=== PATIENT | female | born 1990 | race Caucasian/White ===

== ENCOUNTER 2023-11-29 07:26 | Emergency (ER) | payer BC, SELFPAY ==
--- NOTE | ~2023-11-29 | XR_ITS ---
3 VIEWS LUMBAR SPINE Ordering provider: Mekhi Keenan MD History: . WORSENING MIDDLE LOW BACK PAIN X 2 DAYS. NKI . Comparison: None. FINDINGS: VERTEBRAL BODIES: No visible fracture or subluxation. DISK SPACES: Normal. Possible facet joint disease at the level of L5-S1. SOFT TISSUES: Normal. IMPRESSION: No acute osseous abnormality lumbar spine. Reviewed, dictated and finalized at location A.
[2023-11-29 07:31] VITALS: BP 123/57; PULSE 99; RESP 18; TEMP 36.6; O2SAT 100
[2023-11-29] MEDS: HYDROcodone/acetaminophen (*CRX) 5-325 MG TABLET 1 TAB PO (08:05)
[2023-11-29] MEDS: KETOROLAC 30 MG/ML VIAL (*BKC) IM (08:06)
[2023-11-29] MEDS: dexAMETHasone SOD PHOS INJ 10 MG/ML 1 ML VIAL IM (08:06)
[2023-11-29 08:23] LABS: BEDSIDEPREGUCG Negative (Negative)
[2023-11-29 08:29] LABS: Add Urine Microscopic? YES; Appearance Urine Cloudy (Clear); Bacteria Urine 1+ /hpf; Bilirubin Urine Negative (Negative); Blood Urine Negative (Negative); Color Urine Yellow (Yellow); Glucose Urine UA Negative (Negative); Ketones Urine Trace mg/dL (Negative); Leukocyte Esterase Ur Negative LEU/UL (Negative); Nitrate Urine Negative (Negative); Non Pathogenic Casts 0-2; Protein Urine Trace mg/dL (Negative); Specific Grav Ur 1.024 (1.001-1.035); Squamous Epithelial Cell Urine Occasional /hpf (Few); WBC Urine 0-5 /hpf (0-3)
--- NOTE | 2023-11-29 09:14 | ED.GENADULT ---
HPI - General Adult General Chief complaint: Back Pain/Injury Stated complaint: low back pain Time Seen by Provider: 11/29/23 07:47 History of Present Illness HPI narrative: Patient is a 33-year-old female who presents emergency department with chief complaint of low back pain. Patient reports been having pain for last 24 hours reports that she has no numbness no tingling denies bowel or bladder dysfunction. Patient denies footdrop. The patient reports pain is worse with ambulation improves with rest. Related Data Allergies Allergy/AdvReac Type Severity Reaction Status Date / Time No Known Allergies Allergy Verified 11/29/23 07:27 Review of Systems Review of Systems: A 10 system review of systems was completed on the patient and is negative except for what is stated in the HPI. Nursing and ancillary documentation was reviewed. Exam Narrative: GENERAL: Well-appearing, well-nourished, and in no acute distress. HEAD: Normocephalic, atraumatic. EYES: PERRLA and EOMI. ENT: Nares clear, no rhinorrhea or epistaxis. Mucous membranes moist. NECK: Supple. CHEST: Clear to auscultation. No respiratory distress. HEART: Regular rate and rhythm. No murmur heard. Normal peripheral pulses. ABDOMEN: Soft, nontender, nondistended, normal active bowel sounds. EXTREMITIES: Normal range of motion. No edema. SKIN: Warm, dry, no rash. NEURO: No focal deficits. Alert and oriented x3. No saddle anesthesia no footdrop PSYCH: Normal mood and affect. Course Vital Signs Vital signs: Vital Signs Temperature 36.6 C 11/29/23 07:31 Pulse Rate 99 11/29/23 07:31 Respiratory Rate 18 11/29/23 07:31 Blood Pressure 123/57 L 11/29/23 07:31 Pulse Oximetry 100 11/29/23 07:31 Oxygen Delivery Room Air 11/29/23 07:31 Temperature 36.6 C 11/29/23 07:31 Pulse Rate 99 11/29/23 07:31 Respiratory Rate 18 11/29/23 07:31 Blood Pressure 123/57 L 11/29/23 07:31 Pulse Oximetry 100 11/29/23 07:31 Oxygen Delivery Room Air 11/29/23 07:31 Medical Decision Making [facility] Narrative Medical decision making narrative: Differential diagnosis includes UTI, sciatica, low back pain Plain film x-ray showed no evidence of fracture. Urinalysis showed 3-5 red blood cells no white blood cells negative leukocyte esterase 1+ bacteria. The patient was started on muscle relaxers and anti-inflammatories given a steroid and given a prescription for Lidoderm patch. Vital Signs Vital Signs: Vital Signs Temperature 36.6 C 11/29/23 07:31 Pulse Rate 99 11/29/23 07:31 Respiratory Rate 18 11/29/23 07:31 Blood Pressure 123/57 L 11/29/23 07:31 Pulse Oximetry 100 11/29/23 07:31 Oxygen Delivery Room Air 11/29/23 07:31 Temperature 36.6 C 11/29/23 07:31 Pulse Rate 99 11/29/23 07:31 Respiratory Rate 18 11/29/23 07:31 Blood Pressure 123/57 L 11/29/23 07:31 Pulse Oximetry 100 11/29/23 07:31 Oxygen Delivery Room Air 11/29/23 07:31 Lab Data Labs: Lab Results 11/29/23 11/29/23 Range/Units 08:19 08:20 Urine Color Yellow (Yellow) Urine Appearance Cloudy H (Clear) Urine pH 7.0 (5.0-9.0) Ur Specific [place] 1.024 (1.001-1.035) Urine Protein Trace (Negative) mg/dL Urine Glucose (UA) Negative (Negative) mg/dL Urine Ketones Trace H (Negative) mg/dL Ur Blood (Man) Negative (Negative) Urine Nitrate Negative (Negative) Urine Bilirubin Negative (Negative) Urine Urobilinogen 1.0 (<2.0) mg/dL Leukocyte Esterase Rfl Negative (Negative) LD/UL Urine RBC 3-5 H (0-2) /hpf Urine WBC 0-5 (0-3) /hpf Ur Squamous Epith Cells Occasional (Few) /hpf Urine Bacteria 1+ H /hpf Urine Casts 0-2 POC Urine HCG, Qual Negative (Negative) Discharge Plan Discharge Clinical Impression: Low back pain Patient Disposition: Home, Self-Care Condition: Stable Instructions: Antibiotic Form, Acute Low Back Pain (ED)
[2023-11-29 09:39] VITALS: BP 99/62; PULSE 86; RESP 18; O2SAT 98
== END 2023-11-29 09:52 | disposition home or self-care (01) ==
PROVIDERS: Emergency Provider Emergency Medicine
DX: M54.50 Low back pain, unspecified (principal)
CPT/HCPCS: 72100; 81001; 81025; 96372; 99284; A9270; J1100; J1885

== ENCOUNTER 2024-12-20 20:39 | Observation (INO) | payer BC, SELFPAY ==
--- NOTE | ~2024-12-20 | US_ITS ---
US OB limited 12/20/2024 22:29 Indication: Vaginal bleeding. Placenta check. Procedure: Limited obstetrical ultrasound using transabdominal technique Comparison: No prior studies for comparison. Findings: There is a single living intrauterine in vertex presentation. heart rate 148 BPM. Placenta is anterior without previa. The placenta is grossly normal, without suggestion of placenta abruption. However, ultrasound is not diagnostic of abruption since acute hemorrhage can be is oechoic to be placenta. Recommend clinical correlation. Impression: 1: Single living intrauterine in vertex presentation. No significant abnormality. Reviewed, dictated and finalized at location B. Impression: 1: Single living intrauterine in vertex presentation. No significant abnormality.
[2024-12-20 20:52] VITALS: BP 117/54; PULSE 103; RESP 16; TEMP 36.7
[2024-12-20 21:37] LABS: Add Urine Microscopic? YES; Appearance Urine Cloudy (Clear); Glucose Urine UA Negative (Negative); Leukocyte Esterase Ur Negative LEU/UL (Negative); Nitrate Urine Negative (Negative); Non Pathogenic Casts 0-2; Specific Grav Ur 1.016 (1.001-1.035)
--- NOTE | 2024-12-20 23:27 | OBADM ---
This patient, Cheyenne Whitehead, admitted to the OB room OB Post 117 for observation. Patient/family oriented to hospital policies and general routines including ID bracelet, bed and alarms, visiting hours, pain management, procedures, bathroom and other care routines, personal items, smoking policy, room service/diet, and visiting hours. Patient/Family are encouraged to report perceived risks to care and to ask questions if they do not understand what they are told or what they should do.
--- NOTE | 2025-01-16 04:05 | P.PNOB_ITS ---
OB - Triage/Final Diagnosis Visit Information Comments/Additional reasons for admission: I have assessed the risk for this patient, Cheyenne Whitehead, and determined that she would benefit from observation care. Evaluation Laboratory results: Laboratory Tests 12/20/24 21:22 Urine Color Yellow Urine Appearance Cloudy H Urine pH 7.0 Ur Specific [place] 1.016 Urine Protein Negative Urine Glucose (UA) Negative Urine Ketones Negative Ur Blood (Man) Negative Urine Nitrate Negative Urine Bilirubin Negative Urine Urobilinogen 0.2 Leukocyte Esterase Rfl Negative Urine RBC 0-2 Urine WBC 0-5 Ur Squamous Epith Cells None seen Urine Bacteria None seen Urine Casts 0-2 Final Diagnosis (1) Second trimester bleeding: Code(s): O46.92 - Antepartum hemorrhage, unspecified, second trimester Status: Acute
== END 2024-12-20 23:36 | disposition home or self-care (01) ==
PROVIDERS: Admitting Provider Obstetrics & Gynecology; Visit Provider Obstetrics & Gynecology
DX: O46.92 Antepartum hemorrhage, unspecified, second trimester (principal)
CPT/HCPCS: 76815; 81001; 87086; G0378; G0379

== ENCOUNTER 2025-02-11 09:09 | Outpatient (RCR) | payer BC, SELFPAY ==
--- OUTSIDE RECORDS SUMMARY | 2025-02-10 10:40 | XMS_ITS | Clinical Summary ---
Author Organization [facility] [address] Address [address] [place] [address] Care Team Providers Care [place] [place] Coiling Machine Setter Name Role Phone Tri Beckman Primary Care Provider [phone] Allergies No known active allergies Medications buPROPion XL (WELLBUTRIN XL) 300 mg 24 hr tabletIndication s:Recurrent major depressive disorder, in remission Take 1 tablet (300 mg total) by mouth every morning 90 tablet 3 04/23/2024 04/18/[address] (PROTONIX) 20 mg EC tablet Take 1 tablet (20 mg total) by mouth daily 90 tablet 1 05/23/2024 05/24/19 26 Active topiramate (TOPAMAX) 50 mg tabletIndication s:Chronic migraine without aura without status migrainosus, not intractable Take 1 tablet (50 mg total) by mouth 2 (two) times a day 60 tablet 11 07/27/2024 Active Mona 0.25-0.035 mg per tablet TAKE 1 TABLET BY MOUTH EVERY DAY 84 tablet 1 10/09/2024 Active Active Problems Problem Noted Date Diagnosed Date Class 3 severe obesity due t o excess calories without serious comorbidity with body mass index (BMI) of 40.0 to 44.9 in adult 02/10/2024 Assessment & Plan (08/16/2024 7:57 AM CDT): Assessment & Plan (03/31/2024 8:28 AM STUDY SPECIALIST): Chronic. Improving. Continue phentermine 15 mg through approximately 05/12/24 (3 months). Exercise 5 days a week, 30 mins per day recommended. Eat a heart healthy diet consisting of good, healthy protein (eggs, nuts, peanut butter, chicken, fish, turkey, less pork/beef), lots of vegetables, less carbohydrates and less sugar. Assessment & Plan (02/10/2024 11:01 AM STUDY SPECIALIST): Chronic. Uncontrolled. Weight loss efforts thus far including diet, exercise, weight watchers have been unsuccessful. Medications like Wegovy or Zepbound. Will start phentermine 15 mg daily x 3 months. Risks and benefits discussed with patient. Controlled substance agreement signed. Chiari malformation type I 12/02/2022 Assessment & Plan (02/10/2024 10:58 AM STUDY SPECIALIST): Stable. Asymptomatic. Monitor Chronic migraine without aur a without status migrainosus, not intractable 12/02/2022 Assessment & Plan (02/10/2024 10:58 AM STUDY SPECIALIST): Chronic. Stable and infrequent. Continue to follow with Neurology, managing topiramate and Maxalt Assessment & Plan (02/03/2023 7:05 AM STUDY SPECIALIST): Stable Continue following with neurology for medical management Encounter for wellness examination 12/30/2021 Assessment & Plan (02/04/2023 11:25 AM STUDY SPECIALIST): Ordered CBC, cmp, lipid, hgb a1c, TSH, and free t4 Flu:declined Pap smear: follow with ob, going next week F/u in 1 year for annual Assessment & Plan (12/30/2021 5:51 PM CDT): Ordered CBC, cmp, lipid, hgb a1c, HIV, hep c, TSH, and free t4 Flu:declined Colonoscopy Pap smear: has appointment scheduled with ob F/u in 1 year for annual Insomnia 12/30/2021 Assessment & Plan (02/10/2024 10:56 AM STUDY SPECIALIST): Chronic. Somewhat stable. Monitor Assessment & Plan (02/04/2023 11:29 AM STUDY SPECIALIST): She stopped the trazodone because she felt too dependent on it No issues with sleeping so not interested in restarting it F/u prn Assessment & Plan (12/30/2021 5:50 PM CDT): Continue trazodone 100mg daily F/u in 1 month Gastroesophageal reflux dise ase with esophagitis without hemorrhage 12/30/2021 Assessment & Plan (03/31/2024 8:29 AM STUDY SPECIALIST): Start taking pantoprazole 20 mg every other day. Continue to avoid trigger foods. Assessment & Plan (02/10/2024 10:58 AM STUDY SPECIALIST): Chronic. Stable. We will plan to decrease pantoprazole from 40-20 mg daily for 1 month. She will see me back in a month and may consider further decreasing. Continue on current meds, encouraged healthy diet and exercise Avoid trigger foods including: caffeine, spicy, fried foods, acidic, chocolate. Stop eating 2-3 hours before bedtime. Elevating the head of the bed can help. Try to take PPI less often if possible and take over the counter Pepsid on off days. Avoid trigger foods and eating within 2-3 hours of bedtime. Discussed increased risk of C.dif infection and pneumonia, chronic kidney disease, increased risk of fracture, low magnesium and low B12, possible links to increased rates of dementia with terminal carman use of PPI with pt, would like to remain on medication at this time. Assessment & Plan (09/30/2023 2:23 PM CDT): Continue with pantoprazole prn Assessment & Plan (02/03/2023 7:04 AM STUDY SPECIALIST): Continue with pantoprazole prn Assessment & Plan (12/30/2021 5:51 PM CDT): Continue with pantoprazole prn rx sent to pharmacy History of aspiration pneumonia 02/02/2017 Assessment & Plan (02/10/2024 10:59 AM STUDY SPECIALIST): Secondary to EGD 2017. Erosive esophagitis 02/02/2017 Assessment & Plan (03/31/2024 8:29 AM STUDY SPECIALIST): Per EGD 2017?. Currently asymptomatic. Start taking pantoprazole 20 mg every other day. Continue to avoid trigger foods. Assessment & Plan (02/10/2024 10:57 AM STUDY SPECIALIST): Per EGD 2017?. Currently asymptomatic. We will plan to decrease pantoprazole from 40-20 mg daily for 1 month. She will see me back in a month and may consider further decreasing. Erosive gastritis 02/02/2017 Assessment & Plan (03/31/2024 8:29 AM STUDY SPECIALIST): Start taking pantoprazole 20 mg every other day. Continue to avoid trigger foods. Assessment & Plan (02/10/2024 10:57 AM STUDY SPECIALIST): Per EGD 2017?. Currently asymptomatic. We will plan to decrease pantoprazole from 40-20 mg daily for 1 month. She will see me back in a month and may consider further decreasing. Patellofemoral stress syndrome of both knees Assessment & Plan (02/10/2024 10:59 AM STUDY SPECIALIST): Chronic. Intermittent pain. Avoid NSAIDs due to history of GERD, gastritis, erosive esophagitis. Recommend Tylenol as needed. Moderate episode of recurrent major depressive d isorder 11/19/2015 Assessment & Plan (03/31/2024 8:30 AM STUDY SPECIALIST): Chronic. Stable. Continue bupropion 300 mg daily Assessment & Plan (02/10/2024 10:58 AM STUDY SPECIALIST): Chronic. Stable. Continue bupropion 300 mg daily. May consider changing to SSRI in the next few months. Resolved Problems Problem Noted Date Diagnosed Date Resolved Date Nasal congestion 02/04/2023 02/10/2024 Assessment & Plan (02/04/2023 12:18 PM STUDY SPECIALIST): New concern Not at goal Recommend Flonase at night before bed Follow-up if no improve Tingling of upper extremity 09/07/2022 02/10/2024 Assessment & Plan (09/07/2022 12:41 PM CDT): B/l hands NCS and xray of cervical spine, low suspicion for herniated disc but will see what xray shows F/u prn Elbow pain 09/03/2022 02/10/2024 Assessment & Plan (09/07/2022 12:06 PM CDT): new X-ray of the elbow NSAID as needed NCS to evaluate for cubital tunnel syndrome F/u prn Frequent headaches 07/21/2022 Assessment & Plan (07/21/2022 11:39 AM CDT): New worsening Possibly migraines Keep headache journal Will get ct w/o contrast Will start amitriptyline 10mg daily F/u in 1 month Recurrent major depressive d isorder, in remission 12/30/2021 02/10/2024 Assessment & Plan (09/30/2023 2:24 PM CDT): Stable / clinically quiescent. Will continue to monitor. Continue wellbutrin 300mg daily Follow-up in 4 months Assessment & Plan (02/04/2023 12:17 PM STUDY SPECIALIST): Not at goal Having more depressed moods Denies suicidal ideation or homicidal ideation increase wellbutrin 300mg daily Follow-up in 2 months Assessment & Plan (12/30/2021 5:50 PM CDT): Starting to worsen Resent wellbutrin to pharmacy F/u in 1 month for monitoring Leukocytosis (leucocytosis) 02/02/2017 02/10/2024 Acute hypoxemic respiratory failure 02/01/2017 02/10/2024 Lactic acidosis 02/01/2017 02/10/2024 Obesity (BMI 35.0-39.9 without comorbidity) 11/19/2015 02/10/2024 Assessment & Plan (09/30/2023 7:14 AM CDT): She was counseled on the importance of maintaining a healthy weight and the risks of obesity. Weight loss recommended. Encourage 150min/ week of exercise Encourage 1500 calories in a day for weight loss Recommend the weightloss clinic Chronic nonintractable headache 11/19/2015 02/10/2024 Immunizations Immunization Administration Dates Next Due DTaP 12/09/1993, 4,03/25/1993,10/29 Hep B Vaccine 05/20/1993,1992,1992 IPV 12/20/1997, 4,03/25/1993,10/29 Influenza, Quadrivalent, Spl it, Preservative Free, Intramuscular 02/02/2017 Influenza, Unspecified 12/21/2023(Deferr ed: Patient decision),02/04/2023(Deferred: Patient Refused),03/22/2022(Deferred: Patient Refused),12/30/2021(Deferred: Patient Refused),10/20/2021(Deferred: Patient Refused),10/20/2020(Deferred: Patient Refused) MMR 12/20/1997,12/30/1993 Td, adsorbed 12/20/2014 Tdap 11/05/2006,12/20/1997 Medical History Medical History Date Comments Depression GERD (gastroesophageal reflux disease) Headache Migraines Varicella Family History Medical History Relation Name Comments Hearing loss Father Rocky Walton Cancer Father's Brother Faizan Alcaraz Heart disease Maternal Grandfather Darinel Fleming Breast cancer Maternal Grandmother Jalyn Fleming Cancer Maternal Grandmother Jalyn Fleming Diabetes Maternal Grandmother Jalyn Fleming Relation Name Status Comments Father Rocky Walton Father's Brother Faizan Alcaraz Maternal Grandfather Darinel Fleming Maternal Grandmother Jalyn Fleming Social History Tobacco Use Types Packs/Day Years Used Date Smoking Tobacco: Never Passive Smoke Exposure: Never Smokeless Tobacco: Never AUDIT-C Answer Date Recorded Q1: How often do you have a drink containing alcohol? Never 08/16/2024 Q2: How many drinks containi ng alcohol do you have on a typical day when you are drinking? Patient does not drink Q3: How often do you have si x or more drinks on one occasion? Never 08/16/2024 PHQ-2 Answer Date Recorded PHQ-2 Total Score (If total score is 3 or more points, staff should administer the PHQ-9) 0 08/16/2024 PHQ-9 Answer Date Recorded PHQ-9 Total Score 7 02/10/2024 Comments No Sex and Gender Information Value Date Recorded Sex Assigned at Not on file Legal Sex Female 2:22 PM CDT Gender Identity Female 12/29/2021 4:14 PM CDT Sexual Orientation Straight 07/17/2022 9: 10 AM CDT Obstetrics History Para Term AB IAB SAB Ectopic Multiple Livin g Live Births 0 0 0 0 0 0 0 0 0 0 0 Last Filed Vital Signs Vital Sign Reading Time Taken Comments Blood Pressure 110/60 08/16/2024 7:23 AM CDT Pulse 95 08/16/2024 7:23 AM CDT Temperature 36.1 C (97 F) 08/16/2024 7:23 AM CDT Respiratory Rate 16 08/16/2024 7:23 AM CDT Oxygen Saturation 99% 08/16/2024 7:23 AM CDT Inhaled Oxygen Concentration - - Weight 104.1 kg (229 lb 9.6 oz) 08/16/2024 7:23 AM CDT Height 161.3 cm (5' 3.5) 08/16/2024 7:23 AM CDT Body Mass Index 40.03 08/16/2024 7:23 AM CDT Plan of Treatment Health Maintenance Due Date Last Done Comments HPV Vaccines (1 - 3-dose SCDM series) 08/02/2019 Regular Well Visit/Exam 18-64 02/11/2024 02/10/2023, 02/04/2023, 01/21/2022, Additional history exists Covid-19 Vaccine ( - season) 2024 07/17/2020, 06/21/2020 Influenza Vaccine (#1) 2024 02/02/2017 DTaP/Tdap/Td Vaccine (8 - Td or Tdap) 12/20/2024 12/20/2014, 11/05/2006, 12/20/1997, Additional history exists Depression Screening 08/16/2025 08/16/2024, 02/10/2024, 02/10/2024, Additional history exists Cervical Cancer Screening 02/11/2028 02/10/2023, 04/2021 Hepatitis B Screening Completed 05/20/1993 , 1992, 1992 Hepatitis C Screening Completed 01/02/2022 Pneumococcal vaccine <65 Aged Out No longer eligible based on patient's age to complete this topic Procedures Procedure Name Priority Date/Time Associated Diagnosis Comments PAP AND HPV, REFLEX TO HPV GENOTYPES Routine 02/10/2023 2:15 PM STUDY SPECIALIST Well woman exam HEPATITIS C ANTIBODY Routine 01/02/2022 8:15 AM CDT Health maintenance examination Need for hepatitis C screening test from Last 3 Months or Most Recently Relevant to Health Maintenance Results * Pap and HPV, reflex to HPV Genotypes (02/10/2023 2:15 PM STUDY SPECIALIST) CLINICAL INFORMATION: [facility] Comment:Routine exam LMP [facility] Comment:[id number] Previous Pap [facility] Comment:NGNG Prev. Bx [facility] Comment:NONE GIVEN SOURCE: [facility] Comment:Cervix, Endocervix Pap, specimen adequacy [facility] Comment: Satisfactory for evaluation. Endocervical/transformation zone component present. HPV interp [facility] Comment: Cytology Results: Negative for intraepithelial lesion or malignancy. Label Folder [facility] Comment: YQ, CT(ASCP) CT screening location: [place] [address] [place] [address] Comment [facility] Comment: EXPLANATORY NOTE: The Pap is a screening test for cervical cancer. It is not a diagnostic test and is subject to false negative and false positive results. It is most reliable when a satisfactory sample, regularly obtained, is submitted with relevant clinical findings and history, and when the Pap result is evaluated along with historic and current clinical information. EFFECTIVE FEBRUARY 15, 2023, the version of ThinPrep you ordered, commonly known as manual ThinPrep, will be DISCONTINUED. An alternative form of ThinPrep, called ThinPrep Imaging, will continue to be available. For a copy of the client communication (TIS Client Letter) showing TIS test codes, see [email or web address], and navigate to Well-Woman>Physician Materials>TIS Client Letter. You can also call for test code assistance. Human papillomavirus DNA, High Risk E6/E7 Not Detected NOT DETECTED [facility] Comment: Not Detected High Risk HPV types (16,18,31,33,35,39,45,51,52, 56,58,59,66,68) were not detected. Other HPV types which cause anogenital lesions may be present. The significance of the other types of HPV in malignant processes has not been established. Methodology: Real Time PCR Thin prep 02/10/2023 2:1 5 PM STUDY SPECIALIST 02/11/2023 7:55 AM STUDY SPECIALIST Ammy Varma ACCOUNTING SYSTEM EXPERT LAB CYTOLOGY ORDERABLES Final Re sult [facility] [address] [place] [address] [facility] [address] [facility] [place] [address] * Hepatitis C antibody (01/02/2022 8:15 AM CDT) Hep C Ab NON-REACTI VE NON-REACT GRETA [facility] SIGNAL TO CUT-OFF 0.01 <1.00 [facility] Comment: HCV antibody was non-reactive. There is no laboratory evidence of HCV infection. In most cases, no further action is required. However, if recent HCV exposure is suspected, a test for HCV RNA (test code 99066) is suggested. For additional information please refer to http://education.QBotix/faq/NJN35v3 (This link is being provided for informational/ educational purposes only.) Blood 01/02/2022 8:15 AM CDT 01/02/2022 8:16 AM CDT Narrative [facility] - 01/06/2022 4:40 AM CDT FASTING:YES FASTING: YES Mary Nova MD LAB MICROBIOLOGY - NERAL ORDERABLES Final Result AMA [facility] [id number] [id number] from Last 3 Months or Most Recently Relevant to Health Maintenance Insurance [employer] O[employer] O[employer] Care Teams [place] [place] Coiling Machine Setter Relationship Specialty Start Date End Date Tri Beckman PA [address] [place] [address] PCP - General Family Medicine 02/09/24
--- OUTSIDE RECORDS SUMMARY | 2025-02-10 10:41 | XMS_ITS | Encounter Summary ---
Author Organization [facility] Health Address [address] [place] [place] [address] Care Team Providers Care Utilities Operator Name Role Phone Unavailable Primary Care Provider Unavailabl e Reason for Visit * Reason Comments Med Change Request Encounter Details Date Type Department Care Team (Late st Contact Info) Description 02/07/2025 Refill [facility]TEPARTUM/MOTHER [facility]AB[facility] [address] [place] [address] German Larios MD [address] [place] [address] Med Change Request Social History Tobacco Use Types Packs/Day Years Used Date Smoking Tobacco: Never Smokeless Tobacco: Never Alcohol Use Standard Drinks/Week Comments No 0 (1 standard drink = 0.6 oz pur e alcohol) Overall Financial Resource Strain (CARDIA) Answe r Date Recorded How hard is it for you to pa y for the very basics like food, housing, medical care, and heating? Not hard at all 01/09/2025 [facility] - Occupational Stress Questionnaire Answer Date Recorded Do you feel stress - tense, restless, nervous, or anxious, or unable to sleep at night because your mind is troubled all the time - these days? Not at all 01/09/2025 Hunger Vital Sign Answer Date Recorded Within the past 12 months, y ou worried that your food would run out before you got the money to buy more. Never true 01/10/20 25 Within the past 12 months, t he food you bought just didn't last and you didn't have money to get more. Never true 01/09/2025 PRAPARE - Transportation Answer Date Re corded In the past 12 months, has l ack of transportation kept you from medical appointments or from getting medications? No 12/21 In the past 12 months, has l ack of transportation kept you from meetings, work, or from getting things needed for daily living? No 01/09/2025 Housing Stability Vital Sign Answer William e Recorded In the last 12 months, was t here a time when you were not able to pay the mortgage or rent on time? No 01/09/2025 In the past 12 months, how m any times have you moved where you were living? 0 01/09/2025 At any time in the past 12 m [facility], were you homeless or living in a snf (including now)? 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 Answer Date of Assessment Author No 01/09/2025 1:30 PM Bipin Rashid RN * Is person blind or have serious difficulty seeing? Answer Date of Assessment Author No 01/09/2025 1:30 PM Bipin Rashid RN * Does person have serious difficulty walking/climbing stairs? Answer Date of Assessment Author No 01/09/2025 1:30 PM Bipin Rashid RN * Does person have difficulty dressing/bathing? Answer Date of Assessment Author No 01/09/2025 1:30 PM Bipin Rashid RN * Does person have difficulty doing errands alone? Answer Date of Assessment Author No 01/09/2025 1:30 PM Bipin Rashid RN documented as of this encounter Mental Status * Does person have difficulty concentrating/remembering/making decisions? Answer Entry Date Author No 01/09/2025 1:30 PM Bipin Rashid RN documented in this encounter Plan of Treatment Not on file documented as of this encounter Visit Diagnoses Not on filedocumented in this encounter
--- OUTSIDE RECORDS SUMMARY | 2025-02-10 10:41 | XMS_ITS | Clinical Summary ---
Author Organization [facility] [employer] Address [address] [place] [address] Care Team Providers Care Manager Wellness Name Role Phone Unavailable Primary Care Provider Unavailabl e Source Comments [facility],non-owned Affiliates and Associated Physician Practices is amultiple site organization consisting of ambulatory clinics and hospital sitesin [place], [place], [place] and [place]. This disclosure is being madepursuant to the Care Everywhere program and may not contain all information available regarding this patient. Last updated 17.[facility] [employer] Allergies No known active allergies Medications * Be aware that medications may not be up to date on this document. Alwaysverify current medications with the patient. Vit-Fe Fumarate-FA ( vitamin) 28-0.8 MG tablet Take 1 (one) tablet by mouth once daily Active pantoprazole EC (Protonix) 20 MG tablet Take 1 (one) tablet by mouth once daily Active Progesterone 200 MG capsuleIndicati ons:Short Cervix Insert 1 (one) capsule into the vagina at bedtime Reasons: Short Cervix 30 capsule 12/25/2024 Active aspirin (Aspirin) 81 MG chew tablet Take 1 (one) tablet by mouth once daily (chew and swallow) Active magnesium 30 MG tablet Take 1 (one) tablet by mouth once daily Active Progesterone 100 MG capsule Take 2 (two) capsules by mouth at bedtime 60 capsule 2 01/10/2025 Active Active Problems Problem Noted Date Diagnosed Date Short cervix 01/09/2025 Headache 09/08/2009 Overview (01/27/2015): Estimated Date of Delivery Comme nts Yes 05/01/2025 Based on Ultraso und Encounters Date Type Department Care Team Description 02/07/2025 10:22 AM TEACHING ASSOCIATE - 02/07/2025 11:59 PM TEACHING ASSOCIATE Hospital Encounter [facility] [address] [place] [address] Holland Rosenbaum MD Discharge Disposition: Home or Self Care 02/07/2025 Refill [facility] ANTEPARTUM/MOTHER BABY [address] [phone] German Larios MD Med Change Request 01/10/2025 Telephone [facility] [address] [place] [phone] Madeleine Valenzuela RN Update (Notified Dr. Hoover's staff Patricia that was was evaluated for cerclage ) 01/09/2025 11:27 AM CDT - 01/10/2025 10:02 AM CDT Hospital Encounter [facility]E ANTEPARTUM/MOTHER BABY [address] [place] [address] Doyle Ellis MD Discharge Disposition: Home or Self Care 01/09/2025 9:36 AM CDT - 01/09/2025 11:26 AM CDT Hospital Encounter [facility] [address] [place] [address] Holland Rosenbaum MD Discharge Disposition: Home or Self Care 01/09/2025 Travel 01/01/2025 3:07 PM CDT - 01/01/2025 11:59 PM CDT Hospital Encounter [facility] [address] [place] [phone] Fani Mehta MD ASSISTANT PROFESSOR OF RELIGION Discharge Disposition: Home or Self Care 12/25/2024 11:12 AM CDT - 12/25/2024 11:59 PM CDT Hospital Encounter [facility] [address] [place] [phone] Wendy Kenney MD Discharge Disposition: Home or Self Care 12/25/2024 Travel 12/11/2024 2:17 PM CDT - 12/11/2024 11:59 PM CDT Hospital Encounter [facility] [address] [place] [address] Tenzin Beltran DO ASSISTANT PROFESSOR OF RELIGION Discharge Disposition: Home or Self Care from Last 3 Months Immunizations Immunization Administration Dates Next Due Human Papilloma Virus Quadrivalent Vaccine 06/30,02/24/2010,12/23/2009 Family History Medical History Relation Name Comments Bipolar Disorder Father Migraine Father Other Mother cervical dy6spl lacey Relation Name Status Comments Father Alive Mother Alive Sister 1 Alive Sister 2 Alive Social History Tobacco Use Types Packs/Day Years Used Date Smoking Tobacco: Never Smokeless Tobacco: Never Tobacco Cessation:Counseling Given: Not Answered Alcohol Use Standard Drinks/Week Comments No 0 (1 standard drink = 0.6 oz pur e alcohol) Overall Financial Resource Strain (CARDIA) Answe r Date Recorded How hard is it for you to pa y for the very basics like food, housing, medical care, and heating? Not hard at all 01/09/2025 [facility] Occup[facility] ional [facility] - Occupational Stress [...] any time in the past 12 m [facility], were you homeless or living in a chcf (including now)? No 01/09/2025 Estimated Date of Delivery Comme nts Yes 05/01/2025 Based on Ultraso und Sex and Gender Information Value Date Recorded Sex Assigned at Not on file Legal Sex Female 9:00 AM TEACHING ASSOCIATE Gender Identity Not on file Sexual Orientation Not on file Last Filed Vital Signs Vital Sign Reading Time Taken Comments Blood Pressure 92/61 01/10/2025 8:15 AM CDT Pulse 103 01/10/2025 8:15 AM CDT Temperature 36.8 C (98.2 F) 01/10/2025 8:15 AM CDT Respiratory Rate 20 01/10/2025 8:15 AM CDT Oxygen Saturation 100% 01/10/2025 8:15 AM CDT Inhaled Oxygen Concentration - - Weight 110 kg (242 lb 8 oz) 01/09/2025 1:10 PM C DT Height 152.4 cm (5') 01/09/2025 1:10 PM CDT Body Mass Index 47.36 01/09/2025 1:10 PM CDT Plan of Treatment Health Maintenance Due Date Last Done Comments HIV SCREENING 08/02/2007 HEPATITIS C SCREENING 07/28/2010 DTAP/TDAP/TD VACCINES (1 - Tdap) 08/02/2011 HEPATITIS B VACCINE (1 of 3 - 19+ 3-dose series) 08/02/2011 Cervical Cancer Screening 05/23/2021 PAP SMEAR 05/23/2021 05/23/2018, 12/23/2009 PAP with HPV 2022 DEPRESSION SCREENING 03/22/2024 COVID-19 VACCINE (3 - 2024-2 6 season) 2024 07/17/2020, 06/21/2020 INFLUENZA VACCINE (#1) 2024 02/02/2017 OB-ONE HOUR GLUCOSE 01/23/2025 OB-TDAP CURRENT 01/30/20252006, 12/20/1997 OB-RHOGAM INJECTION 02/06/2025 Respiratory Syncytial Virus (RSV) Vaccine Pt: or over 60 yrs (1 - Risk 1-dose series) 03/06/2025 ZOSTER VACCINE (1 of 2) 2042 HPV VACCINE Completed 06/30/2010, 02/24/2010, 12/23/2009 HIB VACCINE Aged Out No longer eligi ble based on patient's age to complete this topic MENINGOCOCCAL (Group B) VACCINE SHARED DECISION-MAKING Aged Out No longer eligible based on patient's age to complete this topic MENINGOCOCCAL GROUPS A/C/Y/W VACCINE Aged Out No longer eligible b ased on patient's age to complete this topic PNEUMOCOCCAL VACCINE Aged Out No long er eligible based on patient's age to complete this topic Procedures Procedure Name Priority Date/Time Associated Diagnosis Comments SONOGRAM - COMPLETE Routine 02/07/2025 1 1:12 AM TEACHING ASSOCIATE Supervision of high risk , antepartum (HCC) Obesity in with antepartum complication (HCC) 28 weeks gestation of ([facility]) Short cervix during in third trimester ([facility]) Encounter for ultrasound to assess growth ([facility]) Encounter for follow-up ultrasound of anatomy ([facility]) BLOOD TYPE VERIFICATION Routine 01/09/2025 1:26 PM CDT TYPE + SCREEN PANEL STAT 01/09/2025 1 2:50 PM CDT CBC W AUTO DIFFERENTIAL STAT 01/09/2025 12:50 PM CDT Short cervix URINALYSIS REFLEX MICROSCOPIC REFLEX CULTURE Routine 01/09/2025 12:05 PM CDT Short cervix CHLAMYDIA AND N. GONORRHOEAE EDIE STAT 01/09/2025 12:05 PM CDT Short cervix TRICHOMONAS VAGINALIS EDIE STAT 01/09/2025 12:05 PM CDT Short cervix SONOGRAM - COMPLETE Routine 01/09/2025 9 :38 AM CDT Obesity in with antepartum complication (HCC) 23 weeks gestation of ([facility]) Encounter for screening for cervical length (HCC) Short cervix during in second trimester (HCC) Encounter for ultrasound to assess growth (HCC) SONOGRAM - TRANSVAGINAL Routine 01/01/2025 3:39 PM CDT Obesity in with antepartum complication (HCC) 23 weeks gestation of (HCC) Encounter for screening for cervical length (HCC) Short cervix during in second trimester (HCC) SONOGRAM - COMPLETE Routine 12/25/2024 1 1:13 AM CDT Obesity in with antepartum complication (HCC) 21 weeks gestation of (HCC) Encounter for follow-up ultrasound of anatomy ([facility]) SONOGRAM - COMPLETE Routine 12/11/2024 2 :28 PM CDT Obesity in with antepartum complication (HCC) Encounter for anatomic survey ([facility]) 19 weeks gestation of ([facility]) PAP IG LB RFLX HPV HR ALL Routine 12/23/2009 3:09 PM CDT Routine gynecological examination from Last 3 Months or Most Recently Relevant to Health Maintenance Results * Sonogram - Complete (02/07/2025 11:12 AM TEACHING ASSOCIATE) Only the most recent of4 resultswithin the time period is included. Linked Results Indication ======== Cervical shortening on vaginal progesterone Incomplete anatomy Obesity, class 3 - BMI of 40.0 or greater History ====== OB History 1 Lab Tests Test Date Result NIPT Low risk Maternal Assessment Physical Exam Height 160 cm, 5 ft 3 in. Weight 115 kg, 253 lb. Initial weight 108 kg, 237 lb. BMI 44.82 kg/m . Initial BMI 41.98 kg/m . Weight gain 7 kg, 16 lb Method ====== Transabdominal ultrasound. View: Suboptimal view: limited by maternal body habitus. Suboptimal view: limited by position ========= Dodge . Number of fetuses: 1 Dating ====== Date Details Gest. age RUBY LMP 07/24/2024 28 w + 2 d 04/30/2025 Stated RUBY 28 w + 1 d 05/01/2025 U/S 02/07/2025 based upon AC, BPD, Femur, HC 29 w + 0 d 04/25/2025 Assigned dating based on ultrasound (CRL), selected on 09/19/2024 28 w + 1 d 05/01/2025 General Evaluation Cardiac activity present. FHR 150 bpm. movements: visualized. Presentation: cephalic Placenta: Placental site: anterior, fundal Umbilical cord: Cord vessels: 3 vessel cord. Insertion site: normal insertion Amniotic fluid: Amount of AF: normal. MVP 7.4 cm. KIM 21.6 cm. Q1 5.4 cm, Q2 7.4 cm, Q3 4.3 cm, Q4 4.5 cm Biometry BPD 74.6 mm 29w 6d 89% Hadlock HC 268.8 mm 29w 2d 55% Hadlock AC 246.2 mm 28w 6d 65% Hadlock Femur 53.1 mm 28w 1d 36% Hadlock Humerus 44.7 mm 26w 4d 7% Zack HC / AC 1.09 Weight Calculation: EFW 1,279 g 61% Hadlock EFW (lb,oz) 2 lb 13 oz EFW by Hadlock ([id number]) appropriate Growth Overview Exam date GA BPD (mm) HC (mm) AC (mm) FL (mm) HL (mm) EFW (g) 12/11/2024 19w 6d 50.7 95% 173 42% 155.8 74% 34.1 73% 28.5 31% 369 86% 01/09/2025 24w 0d 62.7 88% 222.5 43% 209.8 85% 42.4 32% 38.7 30% 735 77% 02/07/2025 28w 1d 74.6 89% 268.8 55% 246.2 65% 53.1 36% 44.7 7% 1279 61% Anatomy The following structures appear normal: Face Lips. Nose. Heart / Thorax Aortic arch view. The following structures were documented previously: Head / Neck Cranium. Lateral ventricles. Choroid plexus. Midline falx. Cavum septi pellucidi. Cerebellum. Cisterna magna. Thalami. Nuchal fold. Face Profile. Nasal bone. Orbits. Heart / Thorax 4-chamber view. RVOT view. LVOT view. 3-vessel view. 4-qnkdxa-asipkjz view. Situs. Bicaval view. Ductal arch view. Great vessels. Right lung. Left lung. Diaphragm. Abdomen Cord insertion. Stomach. Kidneys. Bladder. Bowel. Genitals. Spine Cervical spine. Thoracic spine. Lumbar spine. Sacral spine. Extremities / Skeleton Arms. Hands. Legs. Feet. Impression ========= Single, live, intrauterine at 28w1d The size is AGA The amniotic fluid volume is normal No major malformations were seen within the limitations of ultrasound Comment ======== ultrasound alone cannot detect all structural, genetic, or functional , placental, or maternal abnormalities Follow-up ======== Follow up ultrasound for size assessment in 4 weeks Coding ====== Diagnoses E66.813: Obesity, class 3 - BMI of 40.0 or greater O26.873: Cervical shortening Z36.2: Encounter for other screening follow-up Procedures 15938: US Preg Uterus Follow Up [facility] [employer] PACS Anatomical Region Laterality Modality Other 02/07/2025 11:1 2 AM TEACHING ASSOCIATE Aki Hoover MD [facility] ORDERABLES Edited Result - Final * BLOOD TYPE VERIFICATION (01/09/2025 1:26 PM CDT) ABO Rh A NEG 01/09/2025 2:1 3 PM CDT [facility] Blood Bank BLOOD SPECIMEN / Unknown Lab Venipuncture / Unknown 01/09/2025 1:26 PM CDT 01/09/2025 1:45 PM CDT us Doyle Ellis MD LAB - BLOOD BANK ORDERABLES Fi nal Result Performing Organization Address [facility]/ZIP Co de Phone Number [facility] [address] [place] [address] * TYPE + SCREEN PANEL (01/09/2025 12:50 PM CDT) ABO Rh A NEG 01/09/2025 1:42 PM CDT [facility] Comment:No history; collect retype. Antibody Screen NEG 1:42 PM CDT [facility] Blood Bank BLOOD SPECIMEN / Unknown Venipuncture / Unknown 01/09/2025 12:50 PM CDT 01/09/2025 1:06 PM CDT Doyle Ellis MD LAB - BLOOD BANK ORDERABLES Fi nal Result Performing Organization Address [facility] de Phone Number [facility] [address] [place] [address] * (ABNORMAL) CBC W AUTO DIFFERENTIAL (01/09/2025 12:50 PM CDT) WBC 11.9(H) 4.0 - 10.7 x10E9/L 01/09/2025 1:20 PM CDT [facility] RBC Count 4.16 3.90 - 5.20 x10E12/L 01/09/2025 1:20 PM CDT [facility] Hemoglobin 12.1 11.9 - 15.8 g/dL 01/09/2025 1:20 PM CDT [facility] Hematocrit 35.7 34.8 - 46.1 % 01/09/2025 1:20 PM CDT [facility] MCV 85.8 80.0 - 98.0 fL 01/09/2025 1:20 PM CDT [facility] MCH 29.1 26.7 - 33.6 pg 01/09/2025 1:20 PM CDT [facility] MCHC 33.9 31.7 - 36.3 g/dL 01/09/2025 1:20 PM CDT [facility] RDW-CV 13.2 11.3 - 14.8 % 01/09/2025 1:20 PM CDT [facility] Platelet Count 313 150 - 420 x10E9/L 01/09/2025 1:20 PM CDT [facility] MPV 9.8 7.8 - 11.4 fL 01/09/2025 1:20 PM CDT [facility] Neutrophil % 77.4(H) 41.0 - 74.0 % 01/09/2025 1:20 PM CDT [facility] Lymphocyte % 16.6(L) 17.0 - 47.0 % 01/09/2025 1:20 PM CDT [facility] Monocyte % 4.7 3.0 - 11.0 % 01/09/2025 1:20 PM CDT [facility] Eosinophil % 0.3 0.0 - 7.0 % 01/09/2025 1:20 PM CDT [facility] Basophil % 0.3 0.0 - 1.6 % 01/09/2025 1:20 PM CDT [facility] Immature Granulocytes % 0.7 0.0 - 1.0 % 01/09/2025 1:20 PM CDT [facility] Neutrophil Absolute 9.26(H) 1.60 - 7.50 x10E9/L 01/09/2025 1:20 PM CDT [facility] Lymphocyte Absolute 1.98 1.00 - 4.40 x10E9/L 01/09/2025 1:20 PM CDT [facility] Monocyte Absolute 0.56 0.15 - 1.00 x10E9/L 01/09/2025 1:20 PM CDT [facility] Eosinophil Absolute 0.03 0.00 - 0.60 x10E9/L 01/09/2025 1:20 PM CDT [facility] Basophil Absolute 0.03 0.00 - 0.13 x10E9/L 01/09/2025 1:20 PM CDT [facility] Blood BLOOD SPECIMEN / Unknown Venipuncture / Unknown 01/09/2025 12:50 PM CDT 01/09/2025 1:06 PM CDT us Doyle Ellis MD LAB - HEMATOLOGY ORDERABLES Fi nal Result [facility] [address] [place] [address] * TRICHOMONAS VAGINALIS EDIE (01/09/2025 12:05 PM CDT) Trichomonas by EDIE NEGATIVE NEGATIVE 01/09/2025 11:47 PM CDT [facility] Microbiology ENTIRE VAGINA / Unknown Collection / Unknown 01/09/2025 12:05 PM CDT 01/09/2025 12:10 PM CDT Narrative [facility] - 01/09/2025 11:47 PM CDT This test performed by Qualitative real-time Polymerase Chain Reaction (PCR). Doyle Ellis MD LAB - MICROBIOLOGY ORDERABLES Final Result Performing Organization Address [facility] Co de Phone Number [facility] [address] [place] [address], [facility] [phone] * CHLAMYDIA AND N. GONORRHOEAE EDIE (01/09/2025 12:05 PM CDT) Chlamydia by EDIE NEGATIVE NEGATIVE 01/09/2025 11:47 PM CDT [facility] Neisseria gonorrhoeae EDIE NEGATIVE NEGATIVE 01/09/2025 11:47 PM CDT [facility] Microbiology ENTIRE VAGINA / Unknown Collection / Unknown 01/09/2025 12:05 PM CDT 01/09/2025 12:10 PM CDT Narrative [facility] - 01/09/2025 11:47 PM CDT This test performed by Qualitative real-time Polymerase Chain Reaction (PCR). Doyle Ellis MD LAB - MICROBIOLOGY ORDERABLES Final Result Performing Organization Address [facility] Co de Phone Number [facility] [address] [place] [address], [facility] [phone] * (ABNORMAL) URINALYSIS REFLEX MICROSCOPIC REFLEX CULTURE (01/09/2025 12:05 PM CDT) Color UA Colorless(A) Yellow, Straw 01/09/2025 12:59 PM CDT [facility] Clarity UA Clear Clear 01/09/2025 12:59 PM CDT [facility] Glucose UA Normal Normal 01/09/2025 12:59 PM CDT [facility] Bilirubin UA Negative Negative 01/09/2025 12:59 PM CDT [facility] Ketone UA Negative Negative 01/09/2025 12:59 PM CDT [facility] Specific [place] UA 1.005 1.005 - 1.030 01/09/2025 12:59 PM CDT [facility] Blood UA Negative Negative 01/09/2025 12:59 PM CDT [facility] pH UA 7.5 5.0 - 8.0 01/09/2025 12:59 PM CDT [facility] Protein UA Negative Negative 01/09/2025 12:59 PM CDT [facility] Urobilinogen UA Normal Normal mg/dL 01/09/2025 12:59 PM CDT [facility] Nitrite UA Negative Negative 01/09/2025 12:59 PM CDT [facility] Leukocyte Esterase UA Negative Negative 01/09/2025 12:59 PM CDT [facility] Reflex Status Culture not indicated 01/09/2025 12:59 PM CDT [facility] Urine Microscopy Urine microscopy not indicated 01/09/2025 12:59 PM CDT [facility] Urine URINE SPECIMEN OBTAINED BY CLEAN CATCH PROCEDURE / Unknown Collection / Unknown 01/09/2025 12:05 PM CDT 01/09/2025 12:09 PM CDT Doyle Ellis MD LAB - URINALYSIS ORDERABLES Fi nal Result Performing Organization Address City/State/[facility] Co de Phone Number [facility] [address] [place] [phone] * Sonogram - Transvaginal (01/01/2025 3:39 PM CDT) Linked Results Indication ======== Cervical shortening Incomplete anatomy Obesity, class 3 - BMI of 40.0 or greater History ====== OB History 1 Lab Tests Test Date Result NIPT Low risk Maternal Assessment Physical Exam Height 160 cm, 5 ft 3 in. Weight 112 kg, 247 lb. Initial weight 108 kg, 237 lb. BMI 43.75 kg/m . Initial BMI 41.98 kg/m . Weight gain 5 kg, 10 lb Method ====== Transabdominal ultrasound. View: Suboptimal view: limited by position and maternal body habitus. ========= Dodge . Number of fetuses: 1 Dating ====== Date Details Gest. age RUBY LMP 07/24/2024 23 w + 0 d 04/30/2025 Stated RUBY 22 w + 6 d 05/01/2025 Assigned dating based on ultrasound (CRL), selected on 09/19/2024 22 w + 6 d 05/01/2025 General Evaluation Cardiac activity present. FHR 152 bpm. Presentation: breech Placenta: Placental site: anterior Umbilical cord: Cord vessels: 3 vessel cord - previously documented. Insertion site: normal insertion - previously documented Amniotic fluid: Amount of AF: normal. MVP 5.3 cm Anatomy The following structures appear normal: Abdomen Stomach. Kidneys. Bladder. The following structures could not be adequately visualized: Head / Neck Cavum septi pellucidi. Thalami. Face Lips. Nose. Heart / Thorax 4-chamber view. RVOT view. LVOT view. 2-igvoex-gfahbpk view. Aortic arch view. Ductal arch view. Great vessels. Right lung. Left lung. Diaphragm. Extremities / Skeleton Hands. The following structures were documented previously: Head / Neck Cranium. Lateral ventricles. Choroid plexus. Midline falx. Cerebellum. Cisterna magna. Nuchal fold. Face Profile. Nasal bone. Orbits. Heart / Thorax 3-vessel view. Situs. Bicaval view. Abdomen Cord insertion. Bowel. Genitals. Spine Cervical spine. Thoracic spine. Lumbar spine. Sacral spine. Extremities / Skeleton Arms. Legs. Feet. Maternal Structures Cervix Cervical length 2.01 cm Approach - Transvaginal Impression ========= Single, live, intrauterine at 22w 6d The amniotic fluid volume is normal. Transvaginal cervical length is closed but dynamic, 20 mm at its shortest, stable compared to prior ultrasounds. Comment ======== ultrasound alone cannot detect all structural, genetic, or functional , placental, or maternal abnormalities Follow-up ======== Follow up ultrasound in 1 week for growth, cervical length assessment and completion of anatomy. Continue vaginal progesterone. Coding ====== Diagnoses E66.813: Obesity, class 3 - BMI of 40.0 or greater O26.872: Cervical shortening Z36.2: Encounter for other screening follow-up O26.872: Cervical shortening Procedures 71274: US Uterus Limited 37350: US Preg Uterus Transvaginal BE PACS Anatomical Region Laterality Modality Other 01/01/2025 3:39 PM CDT us Aki Hoover MD [facility] ORDERABLES Edited Result - Final * PAP IG REFLX HPV ALL PTH (PO REF LAB) (12/23/2009 3:09 PM CDT) Diagnosis [facility] ACCOUNT BILL Comment: NEGATIVE FOR INTRAEPITHELIAL LESION AND MALIGNANCY. FUNGAL ORGANISMS MORPHOLOGICALLY CONSISTENT WITH NESTOR SPECIES ARE PRESENT. CELLULAR CHANGES ASSOCIATED WITH INFLAMMATION ARE PRESENT. Specimen Adequacy [facility] ACCOUNT BILL Comment: Satisfactory for evaluation. Endocervical and/or squamous metaplastic cells (endocervical component) are present. 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 [facility] ACCOUNT BILL Note [facility] ACCOUNT BILL Comment: The Pap smear is a screening test designed to aid in the detection of premalignant and malignant conditions of the uterine cervix. It is not a diagnostic procedure and should not be used as the sole means of detecting cervical cancer. Both false-positive and false-negative reports do occur. . IGLBP CPT Code Automation [facility] ACCOUNT BILL Comment: This liquid based SurePath(R) pap test was screened with the assistance of an image guided system. Reflex [facility] ACCOUNT BILL Comment: The HPV DNA reflex criteria were not met with this specimen result therefore, no HPV testing was performed. . MICROSCOPIC CYTOLOGIC EXAMINATION OF SMEAR OF SPECIMEN FROM FEMALE GENITAL TRACT PREPARED USING PAPANICOLAOU TECHNIQUE / Unknown 12/23/2009 3:09 PM CDT 12/23/2009 10:00 PM CDT Narrative [facility] ACCOUNT BILL - 12/25/2009 4:12 PM CDT No. of containers..01 [facility] Collection Vial Resulting Agency Comment [facility] [address] [place] [id number] Sharri Frey MD LAB - PATHOLOGY/CYTOLO GY ORDERABLES Final Result [facility] ACCOUNT BILL [address] [place] [address] from Last 3 Months or Most Recently Relevant to Health Maintenance Insurance [employer] Advance Directives * Full Code (Latest Code Status on File) Date Activated Date Inactivated Comments 01/09/2025 12:40 PM 01/10/2025 11:12 AM
--- OUTSIDE RECORDS SUMMARY | 2025-02-10 10:41 | XMS_ITS ---
Author Name LUCEROROBSON SALAS Address [address] [place] [address] Phone [facility] Address [address] [place] [address] Phone Care Team Providers Care Cylinder Loader Name Role Phone ROBSON LUCERO Unavailable ALLERGIES, ADVERSE REACTIONS AND ALERTS Allergy Name Allergy Date Allergy Status Allergy Severity Allergy Reaction UNKNOWN DRUG ALLERGIES MAY E XIST PROBLEMS Problem None PROCEDURES Procedure Description Date Notes NO PROCEDURES PERFORMED ASSESSMENTS Assessment None PLAN OF TREATMENT Assessment Planned Activity LOINC Planned William e None CONSULTATION NOTE Note Author Date None HISTORY AND PHYSICAL NOTE Note Author Date None PROGRESS NOTE Note Author Date None DISCHARGE SUMMARY Note Author Date None CHIEF COMPLAINT AND REASON FOR VISIT FUNCTIONAL STATUS Functional or Cognitive Find ing None MENTAL STATUS Cognitive Finding None ENCOUNTERS Encounter Type Provider Diagnoses Start Date Location Disc harged to None SOCIAL HISTORY Social Status Observation Unknown if ever smoked Sex: Female CARE TEAM INFORMATION Cylinder Loader Provider ID Role Location Phone ROSBON LUCERO [phone] [address] [place] [address] INSURANCE PROVIDERS Payer Name Policy type / Coverage type Covered green party ID Policy [facility] [id number] SELF
[2025-02-10 12:01] LABS: Hematocrit 32.4 % (37.0-47.0); Hemoglobin 10.7 g/dL (12.0-15.0); Mean Corpuscular HGB Conc 33.0 g/dl (32-36); Mean Corpuscular Hemoglobin 28.5 pg (26-34); Mean Corpuscular Volume 86.2 fl (80-100); Platelet Count Result 286 k/mm3 (150-375); Red Blood Count 3.76 M/mm3 (4.2-5.4); White Blood Count 13.1 K/mm3 (4.5-10.0)
[2025-02-10 12:23] LABS: Glucose 1 Hour PP 50gm Dose 154 mg/dL
[2025-02-10 12:51] LABS: Syphilis IgG/IgM Antibody Non-Reactive (Nonreactive)
[2025-02-10 12:56] LABS: HIV 1/2 Ab P24 Ag Result Negative (Negative)
[2025-02-11] MEDS: RHO(D) IMMUNE GLOBULIN 300 MCG/2 ML SYRINGE IM (09:36)
== END 2025-02-11 10:00 | disposition home or self-care (01) ==
LOC: ANHLAB 09:09
PROVIDERS: Visit Provider Student in an Organized Health Care Education/Training Program
DX: Z34.90 Encounter for supervision of normal pregnancy, unspecified, unspecified trimester (principal); Z3A.00 Weeks of gestation of pregnancy not specified
CPT/HCPCS: 36415; 82947; 85027; 85461; 86593; 86703; 86850; 86900; 86901; 90384; 96372; G0432; J2790

== ENCOUNTER 2025-02-16 08:49 | Outpatient (CLI) | payer BC, SELFPAY ==
--- OUTSIDE RECORDS SUMMARY | 2025-02-16 08:53 | XMS_ITS | Clinical Summary ---
[facility] Organization [facility] Address [address] [place] [address] Care Team Providers Care Entertainment Production Professional Name Role Phone Tri Beckman Primary Care Provider [phone] Allergies No known active allergies Medications buPROPion [...] CDT): Assessment & Plan (03/31/2024 8:28 AM MARKETING SUPPORT SPECIALIST): Chronic. Improving. Continue phentermine 15 mg through approximately 05/12/24 (3 months). Exercise 5 days a week, 30 mins per day recommended. Eat a heart healthy diet consisting of good, healthy protein (eggs, nuts, peanut butter, chicken, fish, turkey, less pork/beef), lots of vegetables, less carbohydrates and less sugar. Assessment & Plan (02/10/2024 11:01 AM MARKETING SUPPORT SPECIALIST): Chronic. Uncontrolled. Weight loss efforts thus far including diet, exercise, weight watchers have been unsuccessful. Medications like Wegovy or Zepbound. Will start phentermine 15 mg daily x 3 months. Risks and benefits discussed with patient. Controlled substance agreement signed. Chiari malformation type I 12/02/2022 Assessment & Plan (02/10/2024 10:58 AM MARKETING SUPPORT SPECIALIST): Stable. Asymptomatic. Monitor Chronic migraine without aur a without status migrainosus, not intractable 12/02/2022 Assessment & Plan (02/10/2024 10:58 AM MARKETING SUPPORT SPECIALIST): Chronic. Stable and infrequent. Continue to follow with Neurology, managing topiramate and Maxalt Assessment & Plan (02/03/2023 7:05 AM MARKETING SUPPORT SPECIALIST): Stable Continue following with neurology for medical management Encounter for wellness examination 12/30/2021 Assessment & Plan (02/04/2023 11:25 AM MARKETING SUPPORT SPECIALIST): Ordered CBC, cmp, lipid, hgb a1c, [...] 12/30/2021 Assessment & Plan (02/10/2024 10:56 AM MARKETING SUPPORT SPECIALIST): Chronic. Somewhat stable. Monitor Assessment & Plan (02/04/2023 11:29 AM MARKETING SUPPORT SPECIALIST): She stopped the trazodone because she felt too dependent on it No issues with sleeping so not interested in restarting it F/u prn Assessment & Plan (12/30/2021 5:50 PM CDT): Continue trazodone 100mg daily F/u in 1 month Gastroesophageal reflux dise ase with esophagitis without hemorrhage 12/30/2021 Assessment & Plan (03/31/2024 8:29 AM MARKETING SUPPORT SPECIALIST): Start taking pantoprazole 20 mg every other day. Continue to avoid trigger foods. Assessment & Plan (02/10/2024 10:58 AM MARKETING SUPPORT SPECIALIST): Chronic. Stable. 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 Assessment & Plan (09/30/2023 2:23 PM CDT): Continue with pantoprazole prn Assessment & Plan (02/03/2023 7:04 AM MARKETING SUPPORT SPECIALIST): Continue with pantoprazole prn Assessment & Plan (12/30/2021 5:51 PM CDT): Continue with pantoprazole prn rx sent to pharmacy History of aspiration pneumonia 02/02/2017 Assessment & Plan (02/10/2024 10:59 AM MARKETING SUPPORT SPECIALIST): Secondary to EGD 2017. Erosive esophagitis 02/02/2017 Assessment & Plan (03/31/2024 8:29 AM MARKETING SUPPORT SPECIALIST): Per EGD 2017?. Currently asymptomatic. Start taking pantoprazole 20 mg every other day. Continue to avoid trigger foods. Assessment & Plan (02/10/2024 10:57 AM MARKETING SUPPORT SPECIALIST): Per EGD 2017?. Currently asymptomatic. We will plan to decrease pantoprazole from 40-20 mg daily for 1 month. She will see me back in a month and may consider further decreasing. Erosive gastritis 02/02/2017 Assessment & Plan (03/31/2024 8:29 AM MARKETING SUPPORT SPECIALIST): Start taking pantoprazole 20 mg every other day. Continue to avoid trigger foods. Assessment & Plan (02/10/2024 10:57 AM MARKETING SUPPORT SPECIALIST): Per EGD 2017?. Currently asymptomatic. We will plan to decrease pantoprazole from 40-20 mg daily for 1 month. She will see me back in a month and may consider further decreasing. Patellofemoral stress syndrome of both knees Assessment & Plan (02/10/2024 10:59 AM MARKETING SUPPORT SPECIALIST): Chronic. Intermittent pain. Avoid NSAIDs due to history of GERD, gastritis, erosive esophagitis. Recommend Tylenol as needed. Moderate episode of recurrent major depressive d isorder 11/19/2015 Assessment & Plan (03/31/2024 8:30 AM MARKETING SUPPORT SPECIALIST): Chronic. Stable. Continue bupropion 300 mg daily Assessment & Plan (02/10/2024 10:58 AM MARKETING SUPPORT SPECIALIST): Chronic. Stable. Continue bupropion 300 mg daily. May consider changing to SSRI in the next few months. Resolved Problems Problem Noted Date Diagnosed Date Resolved Date Nasal congestion 02/04/2023 02/10/2024 Assessment & Plan (02/04/2023 12:18 PM MARKETING SUPPORT SPECIALIST): New concern Not at goal Recommend [...] months Assessment & Plan (02/04/2023 12:17 PM MARKETING SUPPORT SPECIALIST): Not at goal Having more depressed [...] TO HPV GENOTYPES Routine 02/10/2023 2:15 PM MARKETING SUPPORT SPECIALIST Well woman exam HEPATITIS C ANTIBODY Routine 01/02/2022 8:15 AM CDT Health maintenance examination Need for hepatitis C screening test from Last 3 Months or Most Recently Relevant to Health Maintenance Results * Pap and HPV, reflex to HPV Genotypes (02/10/2023 2:15 PM MARKETING SUPPORT SPECIALIST) CLINICAL INFORMATION: [facility] Comment:Routine exam LMP [facility] Comment:[id number] Previous Pap [facility] Comment:NGNG Prev. Bx [facility] Comment:NONE GIVEN SOURCE: [facility] Comment:Cervix, Endocervix Pap, specimen adequacy [facility] Comment: Satisfactory for evaluation. Endocervical/transformation zone component present. HPV interp [facility] Comment: Cytology Results: Negative for intraepithelial lesion or malignancy. [facility] Comment: YQ, CT(ASCP) CT screening location: [place] [address] [place] [address] [facility] Comment: EXPLANATORY NOTE: The Pap is [...] Client Letter) showing TIS test codes, see [email or web address]/Resources, and navigate to Well-Woman>Physician Materials>TIS Client Letter. You can also call for test code assistance. Human papillomavirus DNA, High Risk E6/E7 Not Detected NOT DETECTED [facility] Comment: Not Detected High Risk HPV types (16,18,31,33,35,39,45,51,52, 56,58,59,66,68) were not detected. Other HPV types which cause anogenital lesions may be present. The significance of the other types of HPV in malignant processes has not been established. Methodology: Real Time PCR Thin prep 02/10/2023 2:1 5 PM MARKETING SUPPORT SPECIALIST 02/11/2023 7:55 AM MARKETING SUPPORT SPECIALIST Ammy Varma [facility] CYTOLOGY ORDERABLES Final Re sult [facility] [address] [place] [address] [facility] [address] [facility] [place] [address] * Hepatitis C antibody (01/02/2022 8:15 AM CDT) Hep C Ab NON-REACTI VE NON-REACT GRETA [facility] SIGNAL TO CUT-OFF 0.01 <1.00 [facility] Comment: HCV antibody was non-reactive. There is no laboratory evidence of HCV infection. In most cases, no further action is required. However, if recent HCV exposure is suspected, a test for HCV RNA (test code 79549) is suggested. For additional information please refer to http://education.ProductBio/faq/BAE42d9 (This link is being provided for informational/ educational purposes only.) Blood 01/02/2022 8:15 AM CDT 01/02/2022 8:16 AM CDT Narrative [facility] - 01/06/2022 4:40 AM CDT FASTING:YES FASTING: YES Mary Nova MD LAB MICROBIOLOGY - NERAL ORDERABLES Final Result AMA [facility] [id number] [phone] from Last 3 Months or Most Recently Relevant to Health Maintenance Insurance [employer] OOS [employer] Care Teams Entertainment Production Professional Relationship Specialty Start Date End Date Tri Beckman PA [address] [place] [address] PCP - General Family Medicine 02/09/24
--- OUTSIDE RECORDS SUMMARY | 2025-02-16 08:53 | XMS_ITS | Encounter Summary ---
Author Organization [facility] Address [address] [place] [address] Care Team Providers Care Business Account Manager Name Role Phone Unavailable Primary Care Provider Unavailabl e Reason for Visit * Reason Comments Med Change Request Encounter Details Date Type Department Care Team (Late st Contact Info) Description 02/07/2025 Refill [facility] 5E ANTEPARTUM/MOTHER BABY [address] [place] [address] German Larios MD [address] [place] [address] Med Change Request Social History Tobacco Use [...] and heating? Not hard at all 01/09/2025 [facility] - Occupational Stress [...] were you homeless or living in a mcc (including now)? 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
--- OUTSIDE RECORDS SUMMARY | 2025-02-16 08:53 | XMS_ITS | Clinical Summary ---
Author Organization [facility] Address [address] [place] [address] Care Team Providers Care Environmental Compliance Specialist Name Role Phone Unavailable Primary Care Provider Unavailabl e Source Comments [facility],non-owned Affiliates and Associated Physician Practices is amultiple site organization consisting of ambulatory clinics and hospital sitesin [place], [place], [place] and [place]. This disclosure is being madepursuant to the Care Everywhere program and may not contain all information available regarding this patient. Last updated 17.[facility] Allergies No known active allergies Medications * [...] Department Care Team Description 02/07/2025 10:22 AM COMMUNITY DEVELOPMENT AIDE - 02/07/2025 11:59 PM COMMUNITY DEVELOPMENT AIDE Hospital Encounter [facility] [address] [place] [address] Holland Rosenbaum MD Discharge Disposition: Home or Self Care 02/07/2025 Refill [facility] 5E ANTEPARTUM/MOTHER BABY [address] [place] [phone] German Larios MD Med Change Request 01/10/2025 Telephone [facility] [address] [place] [address] Madeleine Valenzuela RN Update (Notified Dr. Hoover's staff Patricia that was was evaluated for cerclage ) 01/09/2025 11:27 AM CDT - 01/10/2025 10:02 AM CDT Hospital Encounter [facility]E ANTEPARTUM/MOTHER BABY [address] [place] [address] Doyle Ellis MD Discharge Disposition: Home or Self Care 01/09/2025 9:36 AM CDT - 01/09/2025 11:26 AM CDT Hospital Encounter [facility] [address] [place] [address] Holland Rosenbaum MD Discharge Disposition: Home or Self Care 01/09/2025 Travel 01/01/2025 3:07 PM CDT - 01/01/2025 11:59 PM CDT Hospital Encounter [facility] [address] [place] [address] Fani Mehta MD FLORAL DESIGN TEACHER Discharge Disposition: Home or Self Care 12/25/2024 11:12 AM CDT - 12/25/2024 11:59 PM CDT Hospital Encounter [facility] [address] [place] [address] Wendy Kenney MD Discharge Disposition: Home or Self Care 12/25/2024 Travel 12/11/2024 2:17 PM CDT - 12/11/2024 11:59 PM CDT Hospital Encounter [facility] [address] [place] [address] Tenzin Beltran DO FLORAL DESIGN TEACHER Discharge Disposition: Home or Self Care from [...] and heating? Not hard at all 01/09/2025 [facility] [place] of Occupat ional Health - Occupational Stress [...] any time in the past 12 m [facility], were you homeless or living in a residential (including now)? No 01/09/2025 Estimated Date of Delivery Comme nts Yes 05/01/2025 Based on Ultraso und Sex and Gender Information Value Date Recorded Sex Assigned at Not on file Legal Sex Female 9:00 AM COMMUNITY DEVELOPMENT AIDE Gender Identity Not on file Sexual Orientation [...] - COMPLETE Routine 02/07/2025 1 1:12 AM COMMUNITY DEVELOPMENT AIDE Supervision of high risk , antepartum (HCC) Obesity in with antepartum complication (HCC) 28 weeks gestation of ([facility]) Short cervix during in third trimester ([facility]) Encounter for ultrasound to assess growth ([facility]) Encounter for follow-up ultrasound of anatomy ([facility]) BLOOD TYPE VERIFICATION Routine 01/09/2025 1:26 PM [...] antepartum complication (HCC) 23 weeks gestation of ([facility]) Encounter for screening for cervical length (HCC) [...] (HCC) Encounter for follow-up ultrasound of anatomy ([facility]) SONOGRAM - COMPLETE Routine 12/11/2024 2 :28 PM CDT Obesity in with antepartum complication (HCC) Encounter for anatomic survey ([facility]) 19 weeks gestation of ([facility]) PAP IG LB RFLX HPV HR ALL Routine 12/23/2009 3:09 PM CDT Routine gynecological examination from Last 3 Months or Most Recently Relevant to Health Maintenance Results * Sonogram - Complete (02/07/2025 11:12 AM COMMUNITY DEVELOPMENT AIDE) Only the most recent of4 resultswithin the [...] 2 lb 13 oz EFW by Hadlock ([id number]) appropriate Growth Overview Exam date [place] BPD [...] view. RVOT view. LVOT view. 3-vessel view. 5-anlvps-hhssxzm view. Situs. Bicaval view. Ductal arch view. [...] Z36.2: Encounter for other screening follow-up Procedures 73297: [place] Preg [facility]us [facility] PACS Anatomical Region Laterality Modality Other 02/07/2025 11:1 2 AM COMMUNITY DEVELOPMENT AIDE Aki Hoover MD [facility] ORDERABLES Edited Result - Final * BLOOD TYPE VERIFICATION (01/09/2025 1:26 PM CDT) ABO Rh A NEG 01/09/2025 2:1 3 PM CDT [facility] Blood Bank BLOOD SPECIMEN / Unknown Lab Venipuncture / Unknown 01/09/2025 1:26 PM CDT 01/09/2025 1:45 PM CDT us Doyle lElis MD LAB - BLOOD BANK ORDERABLES Fi nal Result Performing Organization Address [facility]/ZIP Co de Phone Number [facility] [address] [place] [address] * TYPE + SCREEN PANEL (01/09/2025 12:50 PM CDT) ABO Rh A NEG 01/09/2025 1:42 PM CDT [facility] Comment:No history; collect retype. Antibody Screen NEG 1:42 PM CDT [facility] Blood Bank BLOOD SPECIMEN / Unknown Venipuncture / Unknown 01/09/2025 12:50 PM CDT 01/09/2025 1:06 PM CDT Doyle Ellis MD LAB - BLOOD BANK ORDERABLES Fi nal Result Performing Organization Address [facility] de Phone Number [facility] [address] [place] [address] * (ABNORMAL) CBC W AUTO DIFFERENTIAL (01/09/2025 12:50 PM CDT) WBC 11.9(H) 4.0 - 10.7 x10E9/L 01/09/2025 1:20 PM CDT [facility] RBC Count 4.16 3.90 - 5.20 x10E12/L 01/09/2025 1:20 PM CDT [facility] Hemoglobin 12.1 11.9 - 15.8 g/dL 01/09/2025 1:20 PM CDT [facility] Hematocrit 35.7 34.8 - 46.1 % 01/09/2025 1:20 PM CDT [facility] MCV 85.8 80.0 - 98.0 fL 01/09/2025 1:20 PM CDT [facility] MCH 29.1 26.7 - 33.6 pg 01/09/2025 1:20 PM CDT [facility] MCHC 33.9 31.7 - 36.3 g/dL 01/09/2025 1:20 PM CDT [facility] RDW-CV 13.2 11.3 - 14.8 % 01/09/2025 1:20 PM CDT [facility] Platelet Count 313 150 - 420 x10E9/L 01/09/2025 1:20 PM CDT [facility] MPV 9.8 7.8 - 11.4 fL 01/09/2025 1:20 PM CDT [facility] Neutrophil % 77.4(H) 41.0 - 74.0 % 01/09/2025 1:20 PM CDT [facility] Lymphocyte % 16.6(L) 17.0 - 47.0 % 01/09/2025 1:20 PM CDT [facility] Monocyte % 4.7 3.0 - 11.0 % 01/09/2025 1:20 PM CDT [facility] Eosinophil % 0.3 0.0 - 7.0 % 01/09/2025 1:20 PM CDT [facility] Basophil % 0.3 0.0 - 1.6 % 01/09/2025 1:20 PM CDT [facility] Immature Granulocytes % 0.7 0.0 - 1.0 % 01/09/2025 1:20 PM CDT [facility] Neutrophil Absolute 9.26(H) 1.60 - 7.50 x10E9/L 01/09/2025 1:20 PM CDT [facility] Lymphocyte Absolute 1.98 1.00 - 4.40 x10E9/L 01/09/2025 1:20 PM CDT [facility] Monocyte Absolute 0.56 0.15 - 1.00 x10E9/L 01/09/2025 1:20 PM CDT [facility] Eosinophil Absolute 0.03 0.00 - 0.60 x10E9/L 01/09/2025 1:20 PM CDT [facility] Basophil Absolute 0.03 0.00 - 0.13 x10E9/L 01/09/2025 1:20 PM CDT [facility] Blood BLOOD SPECIMEN / Unknown Venipuncture / Unknown 01/09/2025 12:50 PM CDT 01/09/2025 1:06 PM CDT us Doyle Ellis MD LAB - HEMATOLOGY ORDERABLES Fi nal Result [facility] [address] [place] [address] * TRICHOMONAS VAGINALIS EDIE (01/09/2025 12:05 PM CDT) Trichomonas by EDIE NEGATIVE NEGATIVE 01/09/2025 11:47 PM CDT [facility]CRO[facility] Microbiology ENTIRE VAGINA / Unknown Collection / Unknown 01/09/2025 12:05 PM CDT 01/09/2025 12:10 PM CDT Narrative [facility] - 01/09/2025 11:47 PM CDT This test performed by Qualitative real-time Polymerase Chain Reaction (PCR). Doyle Ellis MD LAB - MICROBIOLOGY ORDERABLES Final Result Performing Organization Address [facility] Co de Phone Number [facility] [address] [place] [address], [facility] [phone] * CHLAMYDIA AND N. GONORRHOEAE EDIE (01/09/2025 12:05 PM CDT) Chlamydia by EDIE NEGATIVE NEGATIVE 01/09/2025 11:47 PM CDT [facility] Neisseria gonorrhoeae EDIE NEGATIVE NEGATIVE 01/09/2025 11:47 PM CDT [facility] Microbiology ENTIRE VAGINA / Unknown Collection / Unknown 01/09/2025 12:05 PM CDT 01/09/2025 12:10 PM CDT Narrative [facility] - 01/09/2025 11:47 PM CDT This test performed by Qualitative real-time Polymerase Chain Reaction (PCR). Doyle Ellis MD LAB - MICROBIOLOGY ORDERABLES Final Result Performing Organization Address [facility] Co de Phone Number [facility] [address] [place] [address], [facility] [phone] * (ABNORMAL) URINALYSIS REFLEX MICROSCOPIC REFLEX CULTURE (01/09/2025 12:05 PM CDT) Color UA Colorless(A) Yellow, Straw 01/09/2025 12:59 PM CDT [facility] Clarity UA Clear Clear 01/09/2025 12:59 PM CDT [facility] Glucose UA Normal Normal 01/09/2025 12:59 PM CDT [facility] Bilirubin UA Negative Negative 01/09/2025 12:59 PM CDT [facility] Ketone UA Negative Negative 01/09/2025 12:59 PM CDT [facility] Specific [place] UA 1.005 1.005 - 1.030 01/09/2025 12:59 PM CDT [facility] Blood UA Negative Negative 01/09/2025 12:59 PM CDT [facility] pH UA 7.5 5.0 - 8.0 01/09/2025 12:59 PM CDT [facility] Protein UA Negative Negative 01/09/2025 12:59 PM CDT [facility] Urobilinogen UA Normal Normal mg/dL 01/09/2025 12:59 PM CDT [facility] Nitrite UA Negative Negative 01/09/2025 12:59 PM CDT [facility] Leukocyte Esterase UA Negative Negative 01/09/2025 12:59 PM CDT [facility] Reflex Status Culture not indicated 01/09/2025 12:59 PM CDT [facility] Urine Microscopy Urine microscopy not indicated 01/09/2025 12:59 PM CDT [facility] Urine URINE SPECIMEN OBTAINED BY CLEAN CATCH PROCEDURE / Unknown Collection / Unknown 01/09/2025 12:05 PM CDT 01/09/2025 12:09 PM CDT Doyle Ellis MD LAB - URINALYSIS ORDERABLES Fi nal Result Performing Organization Address City/State/[facility] Co de Phone Number [facility] [address] [place] [address] [phone] * Sonogram - Transvaginal (01/01/2025 3:39 PM [...] Thorax 4-chamber view. RVOT view. LVOT view. 6-lcpvxu-hqgnqdd view. Aortic arch view. Ductal arch view. [...] other screening follow-up O26.872: Cervical shortening Procedures 92859: [place] Uterus Limited 65183: US Preg Uterus Transvaginal ayDivvy PACS Anatomical Region Laterality Modality Other 01/01/2025 3:39 PM CDT us Aki Hoover MD [facility] ORDERABLES Edited Result - Final * PAP [...] ICD9 [facility] ACCOUNT BILL Comment:V72.31 ; Routine wrapper sheeter ecological examination Performed by [facility] ACCOUNT BILL Comment:Teresa Chavira, Stamping Die Maker (ASCP) Comment . [facility] ACCOUNT BILL Note [...] Vial Resulting Agency Comment [facility] [address] [place] [id number] Sharri Frey MD LAB - PATHOLOGY/CYTOLO GY ORDERABLES Final Result [facility] ACCOUNT BILL [address] [place] [address] from Last 3 Months or Most Recently Relevant to Health Maintenance Insurance [employer] Advance Directives * Full Code (Latest Code Status on File) Date Activated Date Inactivated Comments 01/09/2025 12:40 PM 01/10/2025 11:12 AM
--- OUTSIDE RECORDS SUMMARY | 2025-02-16 08:53 | XMS_ITS ---
Author Name LUCEROROBSON SALAS Address [address] [place] [address] [facility] Address [address] [place] [address] Phone Care Team Providers Care Crib Tender Name Role Phone ROBSON LUCERO Unavailable ALLERGIES, [...] ever smoked Sex: Female CARE TEAM INFORMATION Crib Tender Provider ID Role Location Phone ROBSON LUCERO [phone] [address] [place] [address] INSURANCE PROVIDERS Payer Name Policy type / Coverage type Covered libertarian ID Policy [facility] [id number] SELF
[2025-02-16 09:30] LABS: Glucose Fasting Gestational 92 mg/dL (>/=95)
[2025-02-16 11:18] LABS: Glucose 1 Hour Gest 172 mg/dL (>/=180)
[2025-02-16 12:06] LABS: Glucose 2 Hour Gest 138 mg/dL (>/= 155)
[2025-02-16 12:59] LABS: Glucose 3 Hour Gest 124 mg/dL (>/=140)
== END 2025-02-16 08:50 | disposition home or self-care (01) ==
LOC: ANHLAB 08:50
PROVIDERS: Visit Provider Student in an Organized Health Care Education/Training Program
DX: R73.09 Other abnormal glucose (principal)
CPT/HCPCS: 36415; 82951; 82952